=== PATIENT | female | born 1975 | race African-American/Black ===

== ENCOUNTER 2016-12-20 08:18 | Emergency (ER) | payer OTHER ==
[2016-12-20 08:12] LABS: BASOPHIL 0.5 % (0-2); EOSINOPHIL 0.5 % (0-5); HCT 34.7 % (37.0-47.0); HGB 10.8 g/dl (12.5-16.0); LYMPHOCYTE 8.3 % (15-48); MCH 23.4 pg (25.0-31.0); MCHC 31.1 g/dL (32.0-36.0); MCV 75.1 fL (78.0-100.0); MONOCYTE 4.5 % (0-12); MPV 10.2 fL (6.0-9.5); NEUTROPHIL 86.2 % (41-80); PLT 500 K/uL (150-400); RBC 4.62 M/uL (4.20-5.40); RDW 21.4 % (11.5-14.0); WBC 10.5 K/uL (4.0-10.5)
[~2016-12-20 08:18] MED LIST: CARDIZEM CD240 M1 PO; PRILOSEC20 MG PO
[2016-12-20 08:22] LABS: INR 1.01 (0.9-1.2); PROTHROMBIN TIME 12.9 SECONDS (11.7-14.0); PTT 27.5 SECONDS (23.2-31.4)
[2016-12-20 08:37] LABS: ALBUMIN 5.2 g/dL (3.5-5.0); BILIRUBIN - TOTAL 0.6 mg/dL (0.1-1.0); CREATININE 0.9 mg/dL (0.5-1.0); GLOBULIN (CALCULATION) 2.8 g/dL (2.2-4.2); POTASSIUM 3.7 mmol/L (3.5-5.1)
== END 2016-12-20 11:45 | disposition home or self-care (01) ==
LOC: FER 08:18
PROVIDERS: Internal Medicine
DX: N92.0 Excessive and frequent menstruation with regular cycle (principal); I10 Essential (primary) hypertension; Z88.5 Allergy status to narcotic agent
CPT/HCPCS: 36415; 76830; 80053; 85025; 85610; 85730

== ENCOUNTER 2016-12-20 20:28 | Emergency (ER) | payer OTHER | END 2016-12-20 23:00 | disposition home or self-care (01) | LOC: FER 20:28 | DX: I10 Essential (primary) hypertension (principal); Z88.5 Allergy status to narcotic agent | CPT/HCPCS: 99283 ==

== ENCOUNTER 2017-02-19 10:46 | Day surgery (SDCO) | payer OTHER ==
[~2017-02-19] VITALS: Ht 165.1 cm; Wt 66.3 kg
[2017-02-19 12:06] LABS: BASOPHIL 0.4 % (0-2); EOSINOPHIL 0.3 % (0-5); HCT 25.8 % (37.0-47.0); LYMPHOCYTE 13.2 % (15-48); MCH 19.9 pg (25.0-31.0); MCHC 29.8 g/dL (32.0-36.0); MCV 66.8 fL (78.0-100.0); MONOCYTE 6.1 % (0-12); MPV 11.1 fL (6.0-9.5); PLT 418 K/uL (150-400); RBC 3.86 M/uL (4.20-5.40); RDW 18.9 % (11.5-14.0); WBC 6.9 K/uL (4.0-10.5)
[2017-02-19 12:11] LABS: HGB 7.7 g/dl (12.5-16.0)
[2017-02-19 12:16] LABS: TROPONIN T < 0.010 ng/mL
[2017-02-19 12:18] LABS: CREATININE 0.9 mg/dL (0.5-1.0)
[2017-02-19 12:23] LABS: PRO-BNP 126 pg/mL (0-125)
[2017-02-20 05:43] LABS: HCT 30.4 % (37.0-47.0); HGB 9.7 g/dl (12.5-16.0); MCH 22.2 pg (25.0-31.0); MCHC 31.9 g/dL (32.0-36.0); MCV 69.6 fL (78.0-100.0); MPV 11.4 fL (6.0-9.5); RBC 4.37 M/uL (4.20-5.40); RDW 21.2 % (11.5-14.0); WBC 5.9 K/uL (4.0-10.5)
[2017-02-20 06:08] LABS: TSH (THYROID STIM HORMONE) 1.23 uIU/mL (0.270-4.200)
[2017-02-20] MEDS ORDERED: ZESTORETIC 10-1 EACH PO (15:57)
[2017-02-20] MEDS ORDERED: INDERAL20 MG PO (15:57)
[2017-02-20] MEDS ORDERED: NIFEREX150 MG PO (15:57)
== END 2017-02-20 15:24 | disposition home or self-care (01) ==
LOC: FER 10:46 → FMS 14:00
PROVIDERS: Emergency Medicine; ADMIT Obstetrics & Gynecology
PROC: 30233N1 Transfusion of Nonautologous Red Blood Cells into Peripheral Vein, Percutaneous Approach (ICD-10-PCS; principal; 2017-02-19)
DX: D50.0 Iron deficiency anemia secondary to blood loss (chronic) (principal); N92.0 Excessive and frequent menstruation with regular cycle; I10 Essential (primary) hypertension; F41.9 Anxiety disorder, unspecified; R00.2 Palpitations; R42 Dizziness and giddiness; Z79.899 Other long term (current) drug therapy; R10.9 Unspecified abdominal pain; K21.9 Gastro-esophageal reflux disease without esophagitis; Z87.891 Personal history of nicotine dependence; Z82.49 Family history of ischemic heart disease and other diseases of the circulatory system; Z80.3 Family history of malignant neoplasm of breast; Z90.49 Acquired absence of other specified parts of digestive tract; Z88.5 Allergy status to narcotic agent; Z91.048 Other nonmedicinal substance allergy status
CPT/HCPCS: 36415; 36430; 71010; 80048; 82728; 83020; 83540; 83550; 83880; 84443; 84466; 84484; 85025; 86850; 86900; 86901; 86922; 93005; G0378; P9016

== ENCOUNTER 2017-02-21 10:30 | Day surgery (SDCO) | payer OTHER ==
[~2017-02-21] VITALS: Ht 165.1 cm; Wt 65.5 kg
[~2017-02-21 10:30] MED LIST changes: +INDERAL20 MG PO; +NIFEREX150 MG PO; +ZESTORETIC 10-1 EACH PO
[2017-02-21 11:38] LABS: BILIRUBIN NEGATIVE (NEGATIVE); BLOOD NEGATIVE Ery/uL (NEGATIVE); CLARITY CLEAR (CLEAR); COLOR YELLOW (YELLOW); GLUCOSE (U) NORMAL (NORMAL); KETONE (U) NEGATIVE (NEGATIVE); LEUKOCYTES 1+ Leu/uL (NEGATIVE); NITRITE NEGATIVE (NEGATIVE); PROTEIN TRACE (LOW) mg/dL (NEGATIVE); SPECIFIC GRAVITY <=1.005 (1.001-1.030); UROBILINOGEN 0.2 mg/dL (0.2-1.0)
[2017-02-21 11:39] LABS: BASOPHIL 0.5 % (0-2); EOSINOPHIL 0.7 % (0-5); HCT 33.9 % (37.0-47.0); HGB 10.9 g/dl (12.5-16.0); LYMPHOCYTE 12.3 % (15-48); MCH 22.1 pg (25.0-31.0); MCHC 32.2 g/dL (32.0-36.0); MCV 68.8 fL (78.0-100.0); MONOCYTE 6.7 % (0-12); MPV 11.4 fL (6.0-9.5); NEUTROPHIL 79.8 % (41-80); PLT 417 K/uL (150-400); RDW 22.1 % (11.5-14.0); WBC 8.5 K/uL (4.0-10.5)
[2017-02-21 11:40] LABS: RBC 4.93 M/uL (4.20-5.40)
[2017-02-21 11:45] LABS: CREATININE 0.9 mg/dL (0.5-1.0); POTASSIUM 3.4 mmol/L (3.5-5.1)
[2017-02-21 11:54] LABS: BACTERIA 1+
[2017-02-21 18:53] LABS: FT4 (FREE T4) 1.48 ng/dL (0.93-1.70); TSH (THYROID STIM HORMONE) 1.42 uIU/mL (0.270-4.200)
[2017-02-22 07:18] LABS: HCT 30.9 % (37.0-47.0); MCH 22.3 pg (25.0-31.0); MCHC 32.4 g/dL (32.0-36.0); MCV 68.8 fL (78.0-100.0); MPV 10.9 fL (6.0-9.5); RBC 4.49 M/uL (4.20-5.40); RDW 22.4 % (11.5-14.0); WBC 7.7 K/uL (4.0-10.5)
[2017-02-22 07:39] LABS: CREATININE 0.9 mg/dL (0.5-1.0); MAGNESIUM 1.94 mg/dL (1.40-2.10); POTASSIUM 3.7 mmol/L (3.5-5.1)
[2017-02-23 05:10] LABS: HCT 31.5 % (37.0-47.0); HGB 10.1 g/dl (12.5-16.0); MCH 22.2 pg (25.0-31.0); MCHC 32.1 g/dL (32.0-36.0); MCV 69.2 fL (78.0-100.0); MPV 10.8 fL (6.0-9.5); RBC 4.55 M/uL (4.20-5.40); RDW 23.2 % (11.5-14.0); WBC 9.4 K/uL (4.0-10.5)
[2017-02-23 05:24] LABS: CREATININE 0.9 mg/dL (0.5-1.0); POTASSIUM 3.4 mmol/L (3.5-5.1)
[2017-02-24 05:01] LABS: HCT 32.4 % (37.0-47.0); HGB 10.3 g/dl (12.5-16.0); MCH 22.4 pg (25.0-31.0); MCHC 31.8 g/dL (32.0-36.0); MCV 70.4 fL (78.0-100.0); MPV 10.5 fL (6.0-9.5); RBC 4.6 M/uL (4.20-5.40); RDW 23.4 % (11.5-14.0); WBC 8.4 K/uL (4.0-10.5)
[2017-02-24 05:16] LABS: CREATININE 0.9 mg/dL (0.5-1.0); POTASSIUM 3.9 mmol/L (3.5-5.1)
[2017-02-25 04:24] LABS: HGB 10.4 g/dl (12.5-16.0); MCH 22.5 pg (25.0-31.0); MCHC 31.5 g/dL (32.0-36.0); MCV 71.4 fL (78.0-100.0); MPV 10.5 fL (6.0-9.5); RBC 4.62 M/uL (4.20-5.40); RDW 23.9 % (11.5-14.0); WBC 8.5 K/uL (4.0-10.5)
[2017-02-25 04:39] LABS: CREATININE 0.9 mg/dL (0.5-1.0); POTASSIUM 3.8 mmol/L (3.5-5.1)
== END 2017-02-25 12:05 | disposition home or self-care (01) ==
LOC: FER 10:30 → FMS 15:17
PROVIDERS: Emergency Medicine; Internal Medicine; ADMIT Internal Medicine Nephrology
DX: I16.0 Hypertensive urgency (principal); D50.9 Iron deficiency anemia, unspecified; Z88.5 Allergy status to narcotic agent; Z91.09 Other allergy status, other than to drugs and biological substances; Z83.6 Family history of other diseases of the respiratory system; Z82.49 Family history of ischemic heart disease and other diseases of the circulatory system; Z87.891 Personal history of nicotine dependence; Z79.899 Other long term (current) drug therapy
CPT/HCPCS: 36415; 70450; 76770; 80048; 81001; 82088; 83036; 83735; 84244; 84439; 84443; 84484; 84703; 85025; 93005; G0378; J2060

== ENCOUNTER 2017-02-25 21:18 | Emergency (ER) | payer OTHER ==
[2017-02-25 22:03] LABS: BILIRUBIN NEGATIVE (NEGATIVE); BLOOD 2+ Ery/uL (NEGATIVE); CLARITY CLOUDY (CLEAR); COLOR YELLOW (YELLOW); GLUCOSE (U) NORMAL (NORMAL); KETONE (U) 1+ (SMALL) mg/dL (NEGATIVE); LEUKOCYTES 2+ Leu/uL (NEGATIVE); NITRITE NEGATIVE (NEGATIVE); PROTEIN 1+ mg/dL (NEGATIVE); UROBILINOGEN 0.2 mg/dL (0.2-1.0)
[2017-02-25 22:08] LABS: AMORPHOUS URATES CRYSTALS MODERATE; BACTERIA 2+; SQUAMOUS EPITHELIAL CELLS 20-50; URINARY WBC 20-50
[2017-02-25 22:14] LABS: AMPHETAMINES NEGATIVE (NEGATIVE); BARBITURATES NEGATIVE (NEGATIVE); BENZODIAZEPINES NEGATIVE (NEGATIVE); COCAINE NEGATIVE (NEGATIVE); MARIJUANA (THC) NEGATIVE (NEGATIVE); METHADONE NEGATIVE (NEGATIVE); TRICYCLIC ANTIDEPRESSANT NEGATIVE (NEGATIVE)
[2017-02-25 22:51] LABS: BASOPHIL 0.7 % (0-2); EOSINOPHIL 1.1 % (0-5); HCT 35.2 % (37.0-47.0); HGB 11.4 g/dl (12.5-16.0); LYMPHOCYTE 17.1 % (15-48); MCH 23.1 pg (25.0-31.0); MCHC 32.4 g/dL (32.0-36.0); MCV 71.3 fL (78.0-100.0); MONOCYTE 6.7 % (0-12); MPV 10.7 fL (6.0-9.5); NEUTROPHIL 74.4 % (41-80); PLT 442 K/uL (150-400); RBC 4.94 M/uL (4.20-5.40); RDW 24.7 % (11.5-14.0); WBC 10.3 K/uL (4.0-10.5)
[2017-02-25 23:08] LABS: PRO-BNP 33 pg/mL (0-125); TROPONIN T < 0.010 ng/mL
[2017-02-25 23:10] LABS: CREATININE 0.8 mg/dL (0.5-1.0); POTASSIUM 3.9 mmol/L (3.5-5.1)
== END 2017-02-26 07:19 | disposition home or self-care (01) ==
LOC: FER 21:18
PROVIDERS: Emergency Medicine Emergency Medical Services
DX: I10 Essential (primary) hypertension (principal); F41.9 Anxiety disorder, unspecified; Z88.5 Allergy status to narcotic agent; Z87.891 Personal history of nicotine dependence; Z79.899 Other long term (current) drug therapy
CPT/HCPCS: 36415; 36600; 71010; 80048; 80305; 81001; 82803; 83880; 84484; 85025; 85379; 93005

== ENCOUNTER 2017-03-02 13:42 | Emergency (ER) | payer OTHER ==
[2017-03-02 15:44] LABS: MAGNESIUM 1.79 mg/dL (1.40-2.10); PHOSPHORUS 2.5 mg/dL (2.7-4.5)
== END 2017-03-02 16:08 | disposition home or self-care (01) ==
LOC: FER 13:42
PROVIDERS: Internal Medicine
DX: I10 Essential (primary) hypertension (principal); Z88.5 Allergy status to narcotic agent; Z79.899 Other long term (current) drug therapy
CPT/HCPCS: 36415; 83735; 84100; 93005

== ENCOUNTER 2017-03-05 11:54 | Emergency (ER) | payer OTHER | END 2017-03-05 13:59 | disposition home or self-care (01) | LOC: FER 11:54 | DX: I10 Essential (primary) hypertension (principal); Z88.5 Allergy status to narcotic agent | CPT/HCPCS: 99283 ==

== ENCOUNTER 2017-03-07 15:43 | Emergency (ER) | payer OTHER | END 2017-03-07 19:55 | disposition home or self-care (01) | LOC: FER 15:43 | DX: R00.2 Palpitations (principal); I10 Essential (primary) hypertension; F17.200 Nicotine dependence, unspecified, uncomplicated; Z88.5 Allergy status to narcotic agent; Z79.899 Other long term (current) drug therapy | CPT/HCPCS: 93005 ==

== ENCOUNTER 2017-03-11 22:07 | Emergency (ER) | payer OTHER | END 2017-03-12 01:44 | disposition home or self-care (01) | LOC: FER 22:07 | DX: F41.9 Anxiety disorder, unspecified (principal); I10 Essential (primary) hypertension; Z88.5 Allergy status to narcotic agent; Z79.899 Other long term (current) drug therapy | CPT/HCPCS: 93005 ==

== ENCOUNTER 2017-03-12 02:33 | Emergency (ER) | payer OTHER | END 2017-03-12 02:57 | disposition left against medical advice (07) | LOC: FER 02:33 | DX: R07.9 Chest pain, unspecified (principal); R42 Dizziness and giddiness; R11.0 Nausea; Z53.8 Procedure and treatment not carried out for other reasons ==

== ENCOUNTER 2017-03-12 08:09 | Emergency (ER) | payer OTHER ==
[2017-03-12 09:18] LABS: BASOPHIL 0.4 % (0-2); EOSINOPHIL 0.5 % (0-5); HCT 31.6 % (37.0-47.0); LYMPHOCYTE 9.7 % (15-48); MCH 23.4 pg (25.0-31.0); MCHC 31.6 g/dL (32.0-36.0); MCV 73.8 fL (78.0-100.0); MONOCYTE 6.6 % (0-12); MPV 10.8 fL (6.0-9.5); NEUTROPHIL 82.8 % (41-80); PLT 535 K/uL (150-400); RBC 4.28 M/uL (4.20-5.40); RDW 27.9 % (11.5-14.0); WBC 9.4 K/uL (4.0-10.5)
[2017-03-12 09:31] LABS: CREATININE 0.8 mg/dL (0.5-1.0); POTASSIUM 3.3 mmol/L (3.5-5.1)
== END 2017-03-12 12:21 | disposition home or self-care (01) ==
LOC: FER 08:09
PROVIDERS: Internal Medicine
DX: I10 Essential (primary) hypertension (principal); F41.9 Anxiety disorder, unspecified; F32.9 Major depressive disorder, single episode, unspecified; Z88.5 Allergy status to narcotic agent; Z79.899 Other long term (current) drug therapy
CPT/HCPCS: 36415; 80048; 85025; 93005

== ENCOUNTER 2017-03-18 13:40 | Emergency (ER) | payer OTHER | END 2017-03-18 16:14 | disposition home or self-care (01) | LOC: FER 13:40 | DX: I10 Essential (primary) hypertension (principal); F41.9 Anxiety disorder, unspecified; Z88.5 Allergy status to narcotic agent; Z79.899 Other long term (current) drug therapy | CPT/HCPCS: 99284 ==

== ENCOUNTER 2017-03-21 18:58 | Emergency (ER) | payer OTHER | END 2017-03-21 19:35 | disposition home or self-care (01) | LOC: FER 18:58 | DX: R00.2 Palpitations (principal); I10 Essential (primary) hypertension; R51 Headache; Z88.5 Allergy status to narcotic agent; Z79.899 Other long term (current) drug therapy | CPT/HCPCS: 99283 ==

== ENCOUNTER 2017-03-26 14:25 | Emergency (ER) | payer OTHER ==
[2017-03-26 16:23] LABS: BASOPHIL 0.7 % (0-2); EOSINOPHIL 1.3 % (0-5); HCT 32.8 % (37.0-47.0); HGB 10.4 g/dl (12.5-16.0); LYMPHOCYTE 16.1 % (15-48); MCHC 31.7 g/dL (32.0-36.0); MCV 75.8 fL (78.0-100.0); MONOCYTE 6.4 % (0-12); MPV 11.2 fL (6.0-9.5); NEUTROPHIL 75.5 % (41-80); PLT 285 K/uL (150-400); RBC 4.33 M/uL (4.20-5.40); RDW 28.7 % (11.5-14.0); WBC 6.9 K/uL (4.0-10.5)
[2017-03-26 16:24] LABS: BILIRUBIN 1+ mg/dL (NEGATIVE); BLOOD 3+ Ery/uL (NEGATIVE); GLUCOSE (U) NORMAL (NORMAL); KETONE (U) 2+ (MODERATE) mg/dL (NEGATIVE); LEUKOCYTES TRACE Leu/uL (NEGATIVE); NITRITE POSITIVE (NEGATIVE); PROTEIN 3+ mg/dL (NEGATIVE); SPECIFIC GRAVITY 1.025 (1.001-1.030); pH 5.5 (5.0-9.0)
[2017-03-26 16:26] LABS: CLARITY CLOUDY (CLEAR); COLOR RED (YELLOW)
[2017-03-26 16:31] LABS: URINARY WBC RARE
[2017-03-26 16:32] LABS: BACTERIA TRACE; SQUAMOUS EPITHELIAL CELLS RARE; URINARY RBC TNTC
[2017-03-26 17:41] LABS: ALBUMIN 4.5 g/dL (3.5-5.0); BILIRUBIN - TOTAL 0.5 mg/dL (0.1-1.0); CREATININE 0.9 mg/dL (0.5-1.0); GLOBULIN (CALCULATION) 2.2 g/dL (2.2-4.2); POTASSIUM 3.9 mmol/L (3.5-5.1); TOTAL PROTEIN 6.7 g/dL (6.4-8.3)
== END 2017-03-26 18:50 | disposition home or self-care (01) ==
LOC: FER 14:25
PROVIDERS: Emergency Medicine
DX: N39.0 Urinary tract infection, site not specified (principal); N94.6 Dysmenorrhea, unspecified; N88.8 Other specified noninflammatory disorders of cervix uteri; Z88.5 Allergy status to narcotic agent
CPT/HCPCS: 36415; 80053; 81001; 82728; 85025; 87088

== ENCOUNTER 2020-10-01 11:08 | Emergency (ER) | payer OTHER ==
[~2020-10-01 11:08] MED LIST changes: +ADALAT CC30 MG PO; +ADALAT CC90 MG PO; +AMOXICILLIN875 MG PO; +ANTIVERT25 MG PO; +ASCORBIC ACID500 MG PO; +ATIVAN0.5 MG PO; +ATIVAN1 MG PO; +AUGMENTIN 875-1 EACH PO; +CARAFATE S500 MG/TSP PO; +CARDIZEM CD120 MG PO; +CATAPRES 0.2MG0.2 MG PO; +CATAPRES 0.2MG0.2 MG TOP; +CATAPRES-T0.1 MG/24 TD; +CATAPRES0.1 MG PO; +CATAPRES0.1 MG TD; +CIPRO500 MG PO; +CLONAZEPAM 0.50.5 MG PO; +CLONAZEPAM0.5 MG PO; +CLONIDINE 0.3M0.3 MG PO; +COREG 6.25MG6.25 MG PO; +COUMADIN5 MG PO; +COZAAR 25MG TAB25 MG PO; +DUONEB 2.5-0.5M1 AMP INH; +ELIQUIS5 MG PO; +FEOSOL325 MG PO; +FIORICET1 EACH PO; +FLOVENT HF120 PUFFS/ INH; +IRON325 M1 PO; +K-TAB ER20 MEQ PO; +KEFLEX250 MG PO; +KETOROLAC TROME10 MG PO; +KLONOPIN0.5 MG PO; +LOPRESSOR50 MG PO; +MACROBID 100 M100 MG PO; +MACROBID100 MG PO; +METOPROLOL SUCC50 MG PO; +NIFEDIPINE ER30 M1 PO; +NIFEDIPINE ER90 M1 PO; +NORCO 5-325 TA1 EACH PO; +PHENERGAN25 M1 PO; +PREDNISONE 20MG20 MG PO; +PRINIVIL10 MG PO; +PROTONIX 40MG T40 MG PO; +PROVERA10 MG PO; +REMERON15 MG PO; +SENEXON8.6 MG PO; +TOPAMAX50 MG PO; +TRIAMCINOLONE A15 G2 TOP; +ULTRAM50 MG PO; +VERAPAMIL ER180 M1 PO; +VISTARIL50 MG PO; +WELLBUTRIN XL150 MG PO; +XARELTO10 MG PO; +XARELTO15 MG PO; +ZOFRAN4 MG SL
[2020-10-01 12:57] LABS: EOSINOPHIL 0.4 % (0-5); HCT 38.4 % (37.0-47.0); HGB 11.9 g/dl (12.5-16.0); LYMPHOCYTE 9.7 % (15-48); MCH 25.8 pg (25.0-31.0); MCV 83.1 fL (78.0-100.0); MONOCYTE 5.1 % (0-12); MPV 10.9 fL (6.0-9.5); NEUTROPHIL 83.5 % (41-80); NRBC 0; PLT 418 K/uL (150-400); RBC 4.62 M/uL (4.20-5.40); RDW 20.2 % (11.5-14.0)
[2020-10-01 13:12] LABS: CREATININE 0.78 mg/dL (0.51-0.95); POTASSIUM 3.3 mmol/L (3.5-5.1)
== END 2020-10-01 14:30 | disposition home or self-care (01) ==
LOC: FER 11:08
PROVIDERS: Emergency Medicine
DX: S63.602A Unspecified sprain of left thumb, initial encounter (principal); I10 Essential (primary) hypertension; G31.9 Degenerative disease of nervous system, unspecified; Z79.899 Other long term (current) drug therapy; Z86.73 Personal history of transient ischemic attack (TIA), and cerebral infarction without residual deficits; Z88.8 Allergy status to other drugs, medicaments and biological substances; Z88.2 Allergy status to sulfonamides; Z88.5 Allergy status to narcotic agent; X58.XXXA Exposure to other specified factors, initial encounter; Z20.828 Contact with and (suspected) exposure to other viral communicable diseases
CPT/HCPCS: 36415; 70450; 73130; 80048; 85025; U0002

== ENCOUNTER 2020-12-15 17:26 | Emergency (ER) | payer OTHER ==
[2020-12-15 18:56] LABS: BILIRUBIN 1+ mg/dL (NEGATIVE); BLOOD NEGATIVE Ery/uL (NEGATIVE); CLARITY HAZY (CLEAR); COLOR YELLOW (YELLOW); GLUCOSE (U) NORMAL (NORMAL); LEUKOCYTES 1+ Leu/uL (NEGATIVE); NITRITE NEGATIVE (NEGATIVE); PROTEIN 1+ mg/dL (NEGATIVE); SPECIFIC GRAVITY >=1.030 (1.001-1.030); UROBILINOGEN 0.2 mg/dL (0.2-1.0)
[2020-12-15 19:02] LABS: BACTERIA 2+
[2020-12-15] MEDS ORDERED: CIPRO500 MG PO (19:29)
== END 2020-12-15 19:42 | disposition home or self-care (01) ==
LOC: FER 17:26
PROVIDERS: Nurse Practitioner Family
DX: R51.9 Headache, unspecified (principal); N39.0 Urinary tract infection, site not specified; I10 Essential (primary) hypertension; F17.200 Nicotine dependence, unspecified, uncomplicated; Z88.2 Allergy status to sulfonamides; Z88.5 Allergy status to narcotic agent; Z88.8 Allergy status to other drugs, medicaments and biological substances
CPT/HCPCS: 81001; 87088; 99284; J1100

== ENCOUNTER 2020-12-21 02:59 | Emergency (ER) | payer OTHER | END 2020-12-21 05:40 | disposition home or self-care (01) | LOC: FER 02:59 | DX: I10 Essential (primary) hypertension (principal); Z88.5 Allergy status to narcotic agent; Z88.2 Allergy status to sulfonamides | CPT/HCPCS: 71045; 93005 ==

== ENCOUNTER 2020-12-21 10:15 | Emergency (ER) | payer OTHER | END 2020-12-21 12:56 | disposition home or self-care (01) | LOC: FER 10:15 | DX: F41.9 Anxiety disorder, unspecified (principal); R73.9 Hyperglycemia, unspecified; I10 Essential (primary) hypertension; F17.210 Nicotine dependence, cigarettes, uncomplicated; Z88.2 Allergy status to sulfonamides; Z79.899 Other long term (current) drug therapy; Z88.5 Allergy status to narcotic agent; Z88.8 Allergy status to other drugs, medicaments and biological substances ==

== ENCOUNTER 2021-05-19 15:20 | Emergency (ER) | payer OTHER ==
[2021-05-19 17:40] LABS: BASOPHIL 0.5 % (0-2); EOSINOPHIL 0 % (0-5); HGB 12.7 g/dl (12.5-16.0); LYMPHOCYTE 4.9 % (15-48); MCH 22.8 pg (25.0-31.0); MCHC 30.2 g/dL (32.0-36.0); MCV 75.4 fL (78.0-100.0); MONOCYTE 12.7 % (0-12); NEUTROPHIL 81.6 % (41-80); NRBC 0; PLT 274 K/uL (150-400); RBC 5.57 M/uL (4.20-5.40); WBC 9.5 K/uL (4.0-10.5)
[2021-05-19 17:52] LABS: INFLUENZA A NAA NEGATIVE (NEGATIVE)
[2021-05-19 17:54] LABS: CORONAVIRUS 2019 SARS-COV-2 POSITIVE (NEGATIVE)
[2021-05-19 17:55] LABS: BILIRUBIN - TOTAL 0.4 mg/dL (0.2-1.0); BUN/CREAT RATIO (CALC) 10.7 RATIO; CREATININE 0.84 mg/dL (0.51-0.95); GLOBULIN (CALCULATION) 3.8 g/dL; POTASSIUM 4.2 mmol/L (3.5-5.1); TOTAL PROTEIN 7.8 g/dL (6.4-8.2)
[2021-05-19 21:15] LABS: BILIRUBIN 1+ mg/dL (NEGATIVE); BLOOD NEGATIVE Ery/uL (NEGATIVE); CLARITY CLEAR (CLEAR); COLOR YELLOW (YELLOW); GLUCOSE (U) NORMAL (NORMAL); LEUKOCYTES NEGATIVE Leu/uL (NEGATIVE); NITRITE NEGATIVE (NEGATIVE); PROTEIN 2+ mg/dL (NEGATIVE)
[2021-05-19 21:18] LABS: AMPHETAMINES NEGATIVE (NEGATIVE); BARBITURATES NEGATIVE (NEGATIVE); ECSTASY (MDMA) NEGATIVE (NEGATIVE); MARIJUANA (THC) NEGATIVE (NEGATIVE); METHADONE NEGATIVE (NEGATIVE); OPIATES NEGATIVE (NEGATIVE); OXYCODONE NEGATIVE (NEGATIVE)
[2021-05-19 21:22] LABS: BACTERIA 2+; URINARY WBC RARE
== END 2021-05-20 22:23 ==
LOC: FER 15:20
PROVIDERS: Emergency Medicine; Internal Medicine
DX: U07.1 COVID-19 (principal); F20.9 Schizophrenia, unspecified; I10 Essential (primary) hypertension; Z88.5 Allergy status to narcotic agent; Z88.2 Allergy status to sulfonamides; Z88.8 Allergy status to other drugs, medicaments and biological substances; Z79.899 Other long term (current) drug therapy
CPT/HCPCS: 36415; 71045; 71275; 80053; 80305; 81001; 84484; 85025; 85379; 93005; J0696; J2060; J3490; J7030; Q9967; U0002